=== PATIENT | female | born 1970 | race Caucasian/White ===

== ENCOUNTER 2018-04-09 19:46 | Emergency (ER) | payer SELFPAY ==
[~2018-04-09] VITALS: Ht 162.6 cm; Wt 88.6 kg
[2018-04-09 19:52] VITALS: BP 125/83; PULSE 85; TEMP 97.7
== END 2018-04-09 21:17 | disposition left against medical advice (07) ==
LOC: COL.ER 19:46 → EDSEX 19:47 → COL.ER 21:17
DX: S61.213D Laceration without foreign body of left middle finger without damage to nail, subsequent encounter (principal); X58.XXXD Exposure to other specified factors, subsequent encounter

== ENCOUNTER 2018-04-10 06:49 | Emergency (ER) | payer MEDICARE ==
[~2018-04-10] VITALS: Ht 162.6 cm; Wt 86.4 kg
[2018-04-10 06:54] VITALS: BP 146/84; TEMP 98.4
[2018-04-10 07:34] VITALS: PULSE 90
== END 2018-04-10 07:35 | disposition home or self-care (01) ==
LOC: COL.ER 06:49
DX: S46.912A Strain of unspecified muscle, fascia and tendon at shoulder and upper arm level, left arm, initial encounter (principal); F17.210 Nicotine dependence, cigarettes, uncomplicated; Z88.0 Allergy status to penicillin; Z88.6 Allergy status to analgesic agent; W19.XXXA Unspecified fall, initial encounter; Y92.002 Bathroom of unspecified non-institutional (private) residence as the place of occurrence of the external cause

== ENCOUNTER 2018-05-09 13:16 | Emergency (ER) | payer MEDICARE ==
[~2018-05-09] VITALS: Ht 160 cm; Wt 86.4 kg
[2018-05-09 13:18] VITALS: BP 166/98; TEMP 98.9
[2018-05-09] MEDS ORDERED: NORCO 325 MG-7.1 TAB PO (13:28)
[2018-05-09] MEDS ORDERED: CEPHALEXIN500 M1 PO (14:17)
[2018-05-09 14:30] VITALS: PULSE 88
== END 2018-05-09 14:30 | disposition home or self-care (01) ==
LOC: COL.ER 13:16
DX: S81.011A Laceration without foreign body, right knee, initial encounter (principal); F17.210 Nicotine dependence, cigarettes, uncomplicated; Z23 Encounter for immunization; Z88.0 Allergy status to penicillin; Z98.890 Other specified postprocedural states; Z88.6 Allergy status to analgesic agent; W19.XXXA Unspecified fall, initial encounter

== ENCOUNTER 2018-05-20 09:50 | Emergency (ER) | payer MEDICARE ==
[~2018-05-20 09:50] MED LIST: CEPHALEXIN500 M1 PO; NORCO 325 MG-7.1 TAB PO
[2018-05-20 10:14] VITALS: BP 160/92; PULSE 90; TEMP 99.3
== END 2018-05-20 10:18 | disposition home or self-care (01) ==
LOC: COL.ER 09:50
DX: S81.011D Laceration without foreign body, right knee, subsequent encounter (principal); X58.XXXD Exposure to other specified factors, subsequent encounter

== ENCOUNTER 2018-05-25 12:42 | Emergency (ER) | payer MEDICARE ==
[~2018-05-25] VITALS: Ht 160 cm; Wt 86.4 kg
[2018-05-25 12:55] VITALS: BP 122/57; TEMP 98.7
[2018-05-25 14:15] VITALS: PULSE 95
== END 2018-05-25 14:15 | disposition home or self-care (01) ==
LOC: COL.ER 12:42
DX: S62.306A Unspecified fracture of fifth metacarpal bone, right hand, initial encounter for closed fracture (principal); F17.210 Nicotine dependence, cigarettes, uncomplicated; Z88.0 Allergy status to penicillin; Z79.82 Long term (current) use of aspirin; X58.XXXA Exposure to other specified factors, initial encounter; Y92.009 Unspecified place in unspecified non-institutional (private) residence as the place of occurrence of the external cause

== ENCOUNTER 2018-07-25 11:38 | Emergency (ER) | payer MEDICARE ==
[~2018-07-25] VITALS: Ht 160 cm; Wt 77.3 kg
[2018-07-25 12:03] LABS: COLLECTION METHOD CLEAN CATCH
[2018-07-25 12:08] LABS: BASO # 0.1 (0.0-0.2); BASO % 1.1 % (0.0-2.0); EOS # 0.2 (0.0-0.7); EOS % 1.6 % (0-4.0); GRAN # 5.5 (1.4-6.5); GRAN % 54.4 % (42.2-75.2); HEMATOCRIT 46.3 % (37.0-47.0); HEMOGLOBIN 15.9 g/dl (12.5-16.0); LYMPH # 3.5 (1.2-3.4); LYMPH % 34.5 % (20.0-51.0); MEAN CELL VOLUME 106 fl (80.0-100.0); MEAN CORPUSCULAR HEMOGLOBIN 37 pg (27.0-31.0); MEAN CORPUSCULAR HGB CONC 34 g/dl (33.0-37.0); MEAN PLATELET VOLUME 10.4 fl (7.4-10.4); MONO # 0.8 (0.1-0.6); MONO % 8.2 % (1.7-9.3); PLATELET COUNT 311 K/mm3 (130-400); RED BLOOD COUNT 4.36 M/mm3 (4.10-5.30); REDCELL DISTRIBUTION WIDTH-CV 12.9 % (11.5-14.5)
[2018-07-25 12:12] LABS: PH 6 (5-8); SQUAMOUS EPITHELIAL None Seen /hpf; URINE APPEARANCE Clear; URINE BACTERIA None Seen /hpf; URINE BILIRUBIN Negative (NEGATIVE); URINE BLOOD 1+ (NEGATIVE); URINE COLOR Straw; URINE GLUCOSE Negative (NEGATIVE); URINE KETONE Negative (NEGATIVE); URINE LEUKOCYTE ESTERASE Negative (NEGATIVE); URINE NITRATE Negative (NEGATIVE); URINE PROTEIN(semi-quant) Negative (NEGATIVE); URINE RBC None Seen /hpf; URINE UROBILINOGEN Negative (NEGATIVE)
[2018-07-25 12:21] LABS: ALANINE AMINOTRANSFERASE 95 U/L (9-52); ALBUMIN 4.5 gm/dL (3.5-5.0); ALCOHOL(ethanol),MEDICAL 206 mg/dL; ALKALINE PHOSPHATASE 75 U/L (50-136); ANION GAP 10 mmol/L (7-16); AST,SGOT 123 U/L (15-37); BILIRUBIN,TOTAL 0.4 mg/dL (0.0-1.0); BLOOD UREA NITROGEN 12 mg/dL (7-17); CALCIUM 8.8 mg/dL (8.4-10.2); CARBON DIOXIDE 20 mmol/L (22-30); CHLORIDE 111 mmol/L (98-107); CREATININE, serum 0.97 mg/dL (0.52-1.25); GLUCOSE 95 mg/dL (74-106); POTASSIUM 4.6 mmol/L (3.4-5.0); SODIUM 142 mmol/L (137-145); TOTAL PROTEIN 7.9 gm/dL (6.4-8.2)
[2018-07-25 12:27] LABS: ACETAMINOPHEN < 10 ug/mL (10-30); SALICYLATE < 1.0 mg/dL
[2018-07-25 12:32] LABS: TRICYCLIC ANTIDEPRESS URINE NEGATIVE
[2018-07-25 12:49] LABS: TSH w REFLEX 0.997 uIU/mL (0.465-4.680)
[2018-07-25 18:32] VITALS: BP 152/95; PULSE 94; TEMP 99.1
[2018-07-25] MEDS ORDERED: RESTORIL 1515 MG/CAP PO (18:48)
[2018-07-25] MEDS ORDERED: ZYPREXA 5MG5 MG PO (18:48)
== END 2018-07-25 19:04 | disposition home or self-care (01) ==
LOC: COL.ER 11:38
PROVIDERS: Emergency Medicine
DX: F10.129 Alcohol abuse with intoxication, unspecified (principal); R45.851 Suicidal ideations; F32.9 Major depressive disorder, single episode, unspecified; F17.210 Nicotine dependence, cigarettes, uncomplicated; Z90.49 Acquired absence of other specified parts of digestive tract

== ENCOUNTER → 2018-08-30 | Outpatient (CLI) | payer MEDICARE ==
[~2018-08-30] MED LIST changes: +RESTORIL 1515 MG/CAP PO; +ZYPREXA 5MG5 MG PO
== END ==
LOC: COL.RAD 07:27
DX: M48.061 Spinal stenosis, lumbar region without neurogenic claudication (principal); M54.31 Sciatica, right side
CPT/HCPCS: A9585

== ENCOUNTER 2019-01-28 15:49 | Emergency (ER) | payer MEDICARE ==
[~2019-01-28] VITALS: Ht 162.6 cm; Wt 95.5 kg
[2019-01-28 15:56] VITALS: TEMP 100.2
[2019-01-28 16:54] LABS: BASO # 0.1 (0.0-0.2); BASO % 0.6 % (0.0-2.0); EOS # 0.2 (0.0-0.7); EOS % 1.5 % (0-4.0); GRAN # 5.3 (1.4-6.5); GRAN % 53.4 % (42.2-75.2); HEMATOCRIT 42.1 % (37.0-47.0); HEMOGLOBIN 14.7 g/dl (12.5-16.0); LYMPH # 3.7 (1.2-3.4); LYMPH % 36.8 % (20.0-51.0); MEAN CELL VOLUME 103 fl (80.0-100.0); MEAN CORPUSCULAR HEMOGLOBIN 36 pg (27.0-31.0); MEAN CORPUSCULAR HGB CONC 35 g/dl (33.0-37.0); MEAN PLATELET VOLUME 10.3 fl (7.4-10.4); MONO # 0.7 (0.1-0.6); MONO % 7.5 % (1.7-9.3); PLATELET COUNT 249 K/mm3 (130-400); RED BLOOD COUNT 4.08 M/mm3 (4.10-5.30)
[2019-01-28 17:04] LABS: ALANINE AMINOTRANSFERASE 103 U/L (9-52); ALBUMIN 4.1 gm/dL (3.5-5.0); ALKALINE PHOSPHATASE 77 U/L (50-136); ANION GAP 15 mmol/L (7-16); AST,SGOT 100 U/L (15-37); BILIRUBIN,TOTAL 0.3 mg/dL (0.0-1.0); BLOOD UREA NITROGEN 6 mg/dL (7-17); CALCIUM 9.6 mg/dL (8.4-10.2); CARBON DIOXIDE 20 mmol/L (22-30); CHLORIDE 106 mmol/L (98-107); CREATININE, serum 0.91 (0.52-1.25); GLUCOSE 106 mg/dL (74-106); LIPASE 158 U/L (23-300); POTASSIUM 3.8 mmol/L (3.4-5.0); SODIUM 141 mmol/L (137-145); TOTAL PROTEIN 7.6 gm/dL (6.4-8.2)
[2019-01-28 17:18] LABS: TROPONIN-I < 0.012 ng/mL (0.000-0.035)
[2019-01-28] MEDS ORDERED: PREDNISONE20 MG PO (17:36)
[2019-01-28] MEDS ORDERED: ZITHROMAX 250M250 MG PO (17:36)
[2019-01-28 18:05] VITALS: BP 109/76; PULSE 93
[2019-01-28] MEDS ORDERED: DESYREL 100MG100 MG PO (18:40)
[2019-01-28] MEDS ORDERED: NORCO 325 MG-51 TAB PO (18:41)
[2019-01-28] MEDS ORDERED: GEODON 40MG40 MG PO (18:42)
[2019-01-28] MEDS ORDERED: BUSPAR10 MG PO (18:42)
[2019-01-28] MEDS ORDERED: VENTOLIN0.09 MG IH (18:42)
[2019-01-28] MEDS ORDERED: REMERON30 MG PO (18:43)
== END 2019-01-28 18:10 | disposition home or self-care (01) ==
LOC: COL.ER 15:49
PROVIDERS: Emergency Medicine
DX: J45.909 Unspecified asthma, uncomplicated (principal); F41.9 Anxiety disorder, unspecified; F32.9 Major depressive disorder, single episode, unspecified
CPT/HCPCS: J7512

== ENCOUNTER 2019-06-26 07:38 | Emergency (ER) | payer MEDICARE ==
[~2019-06-26] VITALS: Ht 162.6 cm; Wt 99.1 kg
[~2019-06-26 07:38] MED LIST changes: +BUSPAR10 MG PO; +DESYREL 100MG100 MG PO; +GEODON 40MG40 MG PO; +NORCO 325 MG-51 TAB PO; +PREDNISONE20 MG PO; +REMERON30 MG PO; +VENTOLIN0.09 MG IH; +ZITHROMAX 250M250 MG PO
[2019-06-26 07:44] VITALS: BP 148/96
[2019-06-26 08:42] VITALS: PULSE 82; TEMP 98.4
== END 2019-06-26 08:42 | disposition home or self-care (01) ==
LOC: COL.ER 07:38
DX: M25.561 Pain in right knee (principal); F17.210 Nicotine dependence, cigarettes, uncomplicated; Z98.890 Other specified postprocedural states

== ENCOUNTER 2019-07-29 13:05 | Emergency (ER) | payer MEDICARE ==
[~2019-07-29] VITALS: Ht 160 cm; Wt 94.5 kg
[2019-07-29 13:33] VITALS: BP 132/88; PULSE 82; TEMP 97.5
[2019-07-29] MEDS ORDERED: CLEOCIN HCL300 MG PO (13:54)
== END 2019-07-29 14:00 | disposition home or self-care (01) ==
LOC: COL.ER 13:05
DX: K02.9 Dental caries, unspecified (principal); F17.210 Nicotine dependence, cigarettes, uncomplicated; Z88.0 Allergy status to penicillin; Z88.6 Allergy status to analgesic agent; Z98.890 Other specified postprocedural states